=== PATIENT | female | born 1960 | race Two or more races ===

== ENCOUNTER 2024-10-07 18:00 | Inpatient (IN) | payer OTHER ==
[~2024-10-07] VITALS: Ht 152.4 cm; Wt 71.7 kg
[2024-10-07 19:36] LABS: BASOPHILS # (AUTO) 0.1 K/uL (0.0-0.2); BASOPHILS % (AUTO) 0.2 % (0.0-2.0); HEMATOCRIT 21 % (33-45); LYMPHOCYTES # (AUTO) 0.7 K/uL (0.8-4.8); LYMPHOCYTES % (AUTO) 1.5 % (20.0-44.0); MEAN CORPUSCULAR HEMOGLOBIN 28 PG (26.0-33.0); MEAN CORPUSCULAR HGB CONC 31 g/dl (31.0-36.0); MEAN CORPUSCULAR VOLUME 91 fL (82-100); MONOCYTES # (AUTO) 2.8 K/uL (0.1-1.30); MONOCYTES % (AUTO) 6.1 % (2.0-12.0); NEUTROPHILS % (AUTO) 92.2 % (43.0-81.0); PLATELET COUNT (AUTO) 178 K/uL (150-450); RED BLOOD CELL COUNT(AUTO) 2.32 MIL/uL (4.0-5.2); RED CELL DISTRIBUTION WIDTH 23.9 % (11.5-15.0)
[2024-10-07 19:37] LABS: WHITE BLOOD COUNT (AUTO) 45.5 K/uL (4.3-11.0)
[2024-10-07 19:38] LABS: HEMOGLOBIN 6.5 g/dL (11.5-14.8)
[2024-10-07] MEDS: IV NS 0.9% 1,000 ML BAG IV ONE ×2 (19:42→22:00)
[2024-10-07 19:52] LABS: INR 1.1 (0.91-1.10); PARTIAL THROMBOPLASTIN TIME 30.6 SEC (24.3-34.3); PROTHROMBIN TIME 11.6 SECS (9.2-11.1)
[2024-10-07 20:04] LABS: ALANINE AMINOTRANSFERASE 19 U/L (12-78); ALBUMIN 1.7 g/dL (3.4-5.0); ALCOHOL, BLOOD < 3 mg/dL (0-10); ALKALINE PHOSPHATASE 353 U/L (46-116); ASPARTATE AMINOTRANSFERASE 15 U/L (15-37); BILIRUBIN,DIRECT 0.1 mg/dL (0.0-0.2); BILIRUBIN,TOTAL 0.3 mg/dL (0.2-1.0); CALCIUM, SERUM 9.2 mg/dL (8.5-10.1); CARBON DIOXIDE 22 mmol/L (21-32); CHLORIDE 104 mmol/L (98-107); GLUCOSE 138 mg/dL (74-106); POTASSIUM 3.9 mmol/L (3.5-5.1); SODIUM SERUM 139 mmol/L (136-145); TOTAL PROTEIN, SERUM 5.2 g/dL (6.4-8.2); UREA NITROGEN, BLOOD 14 mg/dL (7-18)
[2024-10-07 21:26] LABS: ANISOCYTOSIS 1+; LYMPHOCYTES % (MANUAL) 1 % (16-48); MONOCYTES % (MANUAL) 6 % (0-11.0); NEUTROPHILS % (MANUAL) 93 (42-76); PLATELET ESTIMATE ADEQUATE
[2024-10-07] MEDS: ALBUMIN 25% 12.5 GM/50 ML BOTTLE IV ONE (22:30)
[2024-10-07 23:07] LABS: LACTIC ACID 2.8 mmol/L (0.4-2.0)
[2024-10-08] MEDS ORDERED: ALBUMIN 25% 100 ML IV ONE (00:37)
[2024-10-08] MEDS ORDERED: ACETAMINOPHEN ES 500 MG TABLET ONE (00:37)
[2024-10-08] MEDS: ACETAMINOPHEN 325 MG TABLET PO ONE (00:39)
[2024-10-08 01:35] LABS: APPEARANCE,URINE CLOUDY (CLEAR); BILIRUBIN,URINE NEGATIVE (NEGATIVE); BLOOD, URINE 3+ Ery/uL (NEGATIVE); COLOR,URINE YELLOW (YELLOW); KETONES,URINE NEGATIVE (NEGATIVE); LEUKOCYTE ESTERASE ,URINE 2+ (NEGATIVE); NITRITE, URINE NEGATIVE (NEGATIVE); PROTEIN,URINE 2+ mg/dl (NEGATIVE); UGLUCOSE NEGATIVE (NEGATIVE); UROBILINOGEN,URINE 0.2 EU/dL (0.2)
[2024-10-08 01:42] LABS: AMPHETAMINE, URINE NEGATIVE (NEGATIVE); BARBITURATE, URINE NEGATIVE (NEGATIVE); BENZODIAZEPINE, URINE NEGATIVE (NEGATIVE); CANNABINOID, URINE NEGATIVE (NEGATIVE); COCCAINE, URINE NEGATIVE (NEGATIVE); OPIATE, URINE NEGATIVE (NEGATIVE); PHENCYCLIDINE SCREEN,URINE NEGATIVE (NEGATIVE)
[2024-10-08 01:45] LABS: BACTERIA,URINE Many /HPF (None Seen)
[2024-10-08 01:47] LABS: ADD URINE CULTURE YES; WBC,URINE 81-100 /HPF (0-3)
[2024-10-08 01:49] LABS: SQUAMOUS EPITHELIAL CELL,UR Moderate /HPF (None Seen)
[2024-10-08 01:51] LABS: YEAST,URINE Moderate /HPF (None Seen)
[2024-10-08] MEDS ORDERED: MAGNESIUM HYDROXIDE 30 ML UDC PO PRN (02:00)
[2024-10-08] MEDS ORDERED: MAG HYDROX/AL HYDROX/SIMETH 30 ML UDC PO PRN (02:00)
[2024-10-08] MEDS ORDERED: Z GUARD REMEDY 4 OZ OINT TP PRN (02:00)
[2024-10-08 02:05] LABS: URINE AMORPHOUS URATE Many /HPF (None Seen)
[2024-10-08] MEDS ORDERED: CEFTRIAXONE 1GM BAG (ER ONLY) 50 ML IV ONE (02:36)
[2024-10-08] MEDS: CEFTRIAXONE 1GM BAG (ER ONLY) 1 GM/50 ML PIGGYBACK IV ONE (02:36)
[2024-10-08 03:10] VITALS: BP 102/87; TEMP 98.2; O2SAT 98
[2024-10-08] MEDS: IV NS 0.9% 1,000 ML IV PRN (03:16)
[2024-10-08 04:00] VITALS: BP 102/87; TEMP 98.2; O2SAT 98
[2024-10-08 07:37] LABS: BASOPHILS % (AUTO) 0.1 % (0.0-2.0); EOSINOPHILS # (AUTO) 0.3 K/uL (0.0-0.7); EOSINOPHILS % (AUTO) 0.6 % (0.0-6.0); HEMATOCRIT 25 % (33-45); LYMPHOCYTES % (AUTO) 2.1 % (20.0-44.0); MEAN CORPUSCULAR HEMOGLOBIN 29 PG (26.0-33.0); MEAN CORPUSCULAR HGB CONC 32 g/dl (31.0-36.0); MEAN CORPUSCULAR VOLUME 92 fL (82-100); MONOCYTES % (AUTO) 6.4 % (2.0-12.0); NEUTROPHILS # (AUTO) 42.4 K/uL (1.8-8.9); NEUTROPHILS % (AUTO) 90.8 % (43.0-81.0); PLATELET COUNT (AUTO) 155 K/uL (150-450); RED BLOOD CELL COUNT(AUTO) 2.76 MIL/uL (4.0-5.2); RED CELL DISTRIBUTION WIDTH 21.9 % (11.5-15.0)
[2024-10-08 08:25] LABS: WHITE BLOOD COUNT (AUTO) 46.7 K/uL (4.3-11.0)
[2024-10-08] MEDS: PIPERACILLIN /TAZOBACTAM 3.375 G in IV D5W 50 ML IV SCH (08:33)
[2024-10-08] MEDS: PANTOPRAZOLE 40 MG VIAL IV SCH (08:42)
[2024-10-08 12:49] LABS: LYMPHOCYTES % (MANUAL) 2 % (16-48); MONOCYTES % (MANUAL) 7 % (0-11.0); NEUTROPHILS % (MANUAL) 91 (42-76); PLATELET ESTIMATE ADEQUATE
[2024-10-08 12:50] LABS: ANISOCYTOSIS 1+
[2024-10-08] MEDS ORDERED: ENOX80DI9 SQ (13:09)
[2024-10-08] MEDS ORDERED: BUSP10TA35 PO (13:09)
[2024-10-08] MEDS ORDERED: LACT10SO3 PO (13:09)
[2024-10-08] MEDS ORDERED: GLIP5TAB13 PO (13:09)
[2024-10-08] MEDS ORDERED: BUPR100T6 PO (13:09)
[2024-10-08] MEDS ORDERED: ONDA8TAB13 PO (13:09)
[2024-10-08] MEDS ORDERED: LINA145C PO (13:09)
[2024-10-08] MEDS ORDERED: HYDR4TAB57 PO (13:09)
[2024-10-08] MEDS ORDERED: EMPA25TA PO (13:09)
[2024-10-08] MEDS ORDERED: ATOR20TA PO (13:09)
[2024-10-08] MEDS: HYDROMORPHONE 1 MG/1 ML DISP.SYRIN IV PRN (14:46)
[2024-10-08] MEDS ORDERED: busPIRone HCL 10 MG TABLET PO SCH (18:00)
[2024-10-08] MEDS ORDERED: Medication Not On Formulary EA (Linaclotide (Linzess) 145 MCG) PO SCH (18:00)
[2024-10-08] MEDS: buPROPion SR 100 MG TABLET.ER PO SCH (18:48)
[2024-10-08] MEDS: EMPAGLIFLOZIN 25 MG TABLET PO SCH (18:48)
[2024-10-08] MEDS: glipiZIDE 5 MG TABLET PO SCH (18:48)
[2024-10-08 20:00] VITALS: BP 105/61; TEMP 99; O2SAT 93
[2024-10-08] MEDS: ATORVASTATIN 10 MG TABLET PO SCH (21:07)
[2024-10-08] MEDS: ONDANSETRON HCL/PF 4 MG/2 ML VIAL IVP PRN (21:07)
[2024-10-08] MEDS: ACETAMINOPHEN 325 MG TABLET PO PRN (21:14)
[2024-10-09] VITALS (8 sets, daily range): BP systolic 99–123; BP diastolic 60–79; TEMP 97.3–98.8; O2SAT 95–98
[2024-10-09] MEDS: PANTOPRAZOLE 40 MG TABLET.DR PO SCH (09:19)
[2024-10-09] MEDS: LACTULOSE 10 G/15 ML UDC (PYXIS) PO SCH (09:19)
[2024-10-09] MEDS: busPIRone 5 MG TABLET PO SCH (09:20)
[2024-10-09] MEDS: PIPERACILLIN /TAZOBACTAM 3.375 G in IV D5W 50 ML IV ONE (09:21)
[2024-10-09 12:13] LABS: ALBUMIN 1.8 g/dL (3.4-5.0); BILIRUBIN,TOTAL 0.3 mg/dL (0.2-1.0); MAGNESIUM 1.6 mg/dL (1.8-2.4); PHOSPHORUS 3.7 mg/dL (2.5-4.9); POTASSIUM 3.6 mmol/L (3.5-5.1); TOTAL PROTEIN, SERUM 5.3 g/dL (6.4-8.2)
[2024-10-09 12:52] LABS: EOSINOPHILS # (AUTO) 0.2 K/uL (0.0-0.7); EOSINOPHILS % (AUTO) 0.5 % (0.0-6.0); HEMATOCRIT 30 % (33-45); HEMOGLOBIN 9.3 g/dL (11.5-14.8); LYMPHOCYTES # (AUTO) 0.8 K/uL (0.8-4.8); LYMPHOCYTES % (AUTO) 2.6 % (20.0-44.0); MEAN CORPUSCULAR HEMOGLOBIN 29 PG (26.0-33.0); MEAN CORPUSCULAR HGB CONC 31 g/dl (31.0-36.0); MEAN CORPUSCULAR VOLUME 94 fL (82-100); MONOCYTES # (AUTO) 3.1 K/uL (0.1-1.30); MONOCYTES % (AUTO) 10.2 % (2.0-12.0); NEUTROPHILS # (AUTO) 26.4 K/uL (1.8-8.9); NEUTROPHILS % (AUTO) 86.7 % (43.0-81.0); PLATELET COUNT (AUTO) 184 K/uL (150-450); RED BLOOD CELL COUNT(AUTO) 3.16 MIL/uL (4.0-5.2); RED CELL DISTRIBUTION WIDTH 22.9 % (11.5-15.0)
[2024-10-09 13:03] LABS: WHITE BLOOD COUNT (AUTO) 30.4 K/uL (4.3-11.0)
[2024-10-09 13:25] LABS: ANISOCYTOSIS 2+; LYMPHOCYTES % (MANUAL) 5 % (16-48); MONOCYTES % (MANUAL) 11 % (0-11.0); NEUTROPHILS % (MANUAL) 84 (42-76); PLATELET ESTIMATE ADEQUATE
[2024-10-09] MEDS ORDERED: ZOLPIDEM TARTRATE 5 MG TABLET PO PRN (21:30)
[2024-10-10 00:16] VITALS: BP 114/68; TEMP 98.8; O2SAT 96
[2024-10-10 08:00] VITALS: BP 105/79; TEMP 97.7; O2SAT 96
[2024-10-10 12:00] VITALS: BP 126/60; TEMP 98.6; O2SAT 97
[2024-10-10 15:13] LABS: HIV-1 p24 ANTIGEN NON REACTIVE (NONREACTIVE); HIV-1/2 ANTIBODY NON REACTIVE (NONREACTIVE)
[2024-10-10 16:00] VITALS: BP 111/74; TEMP 97.7; O2SAT 98
[2024-10-11 03:06] LABS: RAPID PLASMA REAGIN QUAL. Non Reactive (Non Reactive)
== END 2024-10-10 21:00 | disposition short-term general hospital (02) | DRG 871 ==
LOC: ER 18:00 → TELE 10-08 02:18
PROVIDERS: ADMIT Nurse Practitioner Acute Care; ATTEND Nurse Practitioner Acute Care
PROC: 30233N1 Transfusion of Nonautologous Red Blood Cells into Peripheral Vein, Percutaneous Approach (ICD-10-PCS; principal; 2024-10-08)
DX: A41.9 Sepsis, unspecified organism (principal); G92.8 Other toxic encephalopathy; N12 Tubulo-interstitial nephritis, not specified as acute or chronic; C79.82 Secondary malignant neoplasm of genital organs; N13.9 Obstructive and reflux uropathy, unspecified; Z85.3 Personal history of malignant neoplasm of breast; D64.9 Anemia, unspecified; Z88.8 Allergy status to other drugs, medicaments and biological substances; E11.9 Type 2 diabetes mellitus without complications; R65.20 Severe sepsis without septic shock; Z85.42 Personal history of malignant neoplasm of other parts of uterus; Z90.10 Acquired absence of unspecified breast and nipple; Z92.21 Personal history of antineoplastic chemotherapy; D63.8 Anemia in other chronic diseases classified elsewhere; Z93.6 Other artificial openings of urinary tract status; Z79.84 Long term (current) use of oral hypoglycemic drugs; Z79.899 Other long term (current) drug therapy; Z79.01 Long term (current) use of anticoagulants
CPT/HCPCS: 36415; 70450-TC; 71045-TC; 80048-TC; 80053-TC; 80076-TC; 81001; 82962-TC; 83605-TC; 83735-TC; 84100-TC; 84443-TC; 85025-TC; 85730-TC; 86592; 86593; 86803; 86850-TC; 87040-TC; 87086-TC; 87806; A4223; G0378; G0480; J0696; J1171; J2405; J2470; J2543; J7030; J7040; J7060; P9016; P9047

== ENCOUNTER 2024-10-27 12:41 | Emergency (ER) | payer OTHER, MEDICAID ==
[~2024-10-27] VITALS: Ht 157.5 cm; Wt 95.7 kg
[~2024-10-27 12:41] MED LIST: ATOR20TA PO; BUPR100T6 PO; BUSP10TA35 PO; EMPA25TA PO; ENOX80DI9 SQ; GLIP5TAB13 PO; HYDR4TAB57 PO; LACT10SO3 PO; LINA145C PO; ONDA8TAB13 PO
[2024-10-27 13:13] VITALS: TEMP 97.5
[2024-10-27] MEDS ORDERED: MORPHINE SULFATE INJ 4 MG/ML DISP.SYRIN ONE (13:40)
[2024-10-27] MEDS: MORPHINE SULFATE INJ 2 MG/ML DISP.SYRIN IV ONE (13:50)
[2024-10-27 15:17] LABS: BASOPHILS % (AUTO) 0.2 % (0.0-2.0); EOSINOPHILS # (AUTO) 0.1 K/uL (0.0-0.7); EOSINOPHILS % (AUTO) 0.6 % (0.0-6.0); HEMATOCRIT 25 % (33-45); LYMPHOCYTES # (AUTO) 0.3 K/uL (0.8-4.8); LYMPHOCYTES % (AUTO) 2.5 % (20.0-44.0); MEAN CORPUSCULAR HEMOGLOBIN 31 PG (26.0-33.0); MEAN CORPUSCULAR HGB CONC 31 g/dl (31.0-36.0); MEAN CORPUSCULAR VOLUME 98 fL (82-100); MONOCYTES # (AUTO) 0.8 K/uL (0.1-1.30); MONOCYTES % (AUTO) 6.5 % (2.0-12.0); NEUTROPHILS # (AUTO) 11.5 K/uL (1.8-8.9); NEUTROPHILS % (AUTO) 90.2 % (43.0-81.0); PLATELET COUNT (AUTO) 228 K/uL (150-450); RED BLOOD CELL COUNT(AUTO) 2.59 MIL/uL (4.0-5.2); RED CELL DISTRIBUTION WIDTH 27.3 % (11.5-15.0); WHITE BLOOD COUNT (AUTO) 12.8 K/uL (4.3-11.0)
[2024-10-27] MEDS ORDERED: HYDROMORPHONE 1 MG/1 ML DISP.SYRIN ONE (15:25)
[2024-10-27 15:27] LABS: CALCIUM, SERUM 9.5 mg/dL (8.5-10.1); POTASSIUM 4.8 mmol/L (3.5-5.1)
[2024-10-27] MEDS: HYDROMORPHONE 1 MG/1 ML DISP.SYRIN IV ONE (15:30)
[2024-10-27 15:38] LABS: ALBUMIN 1.9 g/dL (3.4-5.0); BILIRUBIN,DIRECT 0.1 mg/dL (0.0-0.2); BILIRUBIN,TOTAL 0.5 mg/dL (0.2-1.0); TOTAL PROTEIN, SERUM 5.8 g/dL (6.4-8.2)
[2024-10-27 20:17] VITALS: BP 104/66; O2SAT 95
== END 2024-10-27 20:43 | disposition short-term general hospital (02) ==
LOC: ER 12:48
DX: D64.9 Anemia, unspecified (principal); E11.9 Type 2 diabetes mellitus without complications; Z79.84 Long term (current) use of oral hypoglycemic drugs; Z79.899 Other long term (current) drug therapy; Z88.5 Allergy status to narcotic agent
CPT/HCPCS: 99285; 96374; 73564; 85025; 80048; 83690; 80076; 36415; J1171; J2270

== ENCOUNTER 2024-11-06 17:39 | Inpatient (IN) | payer OTHER, MEDICAID ==
[~2024-11-06] VITALS: Ht 170.2 cm; Wt 90.7 kg
[2024-11-06] MEDS: CEFEPIME 1 GM in IV D5W 50 ML IV ONE (18:10)
[2024-11-06 18:23] LABS: BASOPHILS % (AUTO) 0.2 % (0.0-2.0); EOSINOPHILS % (AUTO) 0.1 % (0.0-6.0); HEMATOCRIT 34 % (33-45); LYMPHOCYTES # (AUTO) 0.3 K/uL (0.8-4.8); LYMPHOCYTES % (AUTO) 2.4 % (20.0-44.0); MEAN CORPUSCULAR HEMOGLOBIN 31 PG (26.0-33.0); MEAN CORPUSCULAR HGB CONC 29 g/dl (31.0-36.0); MEAN CORPUSCULAR VOLUME 105 fL (82-100); MONOCYTES # (AUTO) 0.6 K/uL (0.1-1.30); MONOCYTES % (AUTO) 4.6 % (2.0-12.0); NEUTROPHILS # (AUTO) 12.4 K/uL (1.8-8.9); NEUTROPHILS % (AUTO) 92.7 % (43.0-81.0); PLATELET COUNT (AUTO) 189 K/uL (150-450); RED BLOOD CELL COUNT(AUTO) 3.27 MIL/uL (4.0-5.2); RED CELL DISTRIBUTION WIDTH 27.7 % (11.5-15.0); WHITE BLOOD COUNT (AUTO) 13.3 K/uL (4.3-11.0)
[2024-11-06 18:38] LABS: ALBUMIN 2.1 g/dL (3.4-5.0); BILIRUBIN,TOTAL 0.3 mg/dL (0.2-1.0); CALCIUM, SERUM 10.3 mg/dL (8.5-10.1); CARBON DIOXIDE 21 mmol/L (21-32); CHLORIDE 106 mmol/L (98-107); CREATININE 1.7 mg/dL (0.6-1.3); GLUCOSE 133 mg/dL (74-106); POTASSIUM 5.3 mmol/L (3.5-5.1); SODIUM SERUM 140 mmol/L (136-145); TOTAL PROTEIN, SERUM 5.6 g/dL (6.4-8.2); UREA NITROGEN, BLOOD 69 mg/dL (7-18)
[2024-11-06 18:43] LABS: INR 0.99 (0.91-1.10); PARTIAL THROMBOPLASTIN TIME 26.5 SEC (24.3-34.3); PROTHROMBIN TIME 10.5 SECS (9.2-11.1)
[2024-11-06 18:45] LABS: LACTIC ACID 2.1 mmol/L (0.4-2.0)
[2024-11-06] MEDS: VANCOMYCIN 1 GM in IV D5W 250 ML IV ONE (18:50)
[2024-11-06 18:52] LABS: ALANINE AMINOTRANSFERASE 10 U/L (12-78); ALKALINE PHOSPHATASE 127 U/L (46-116); BILIRUBIN,DIRECT 0.1 mg/dL (0.0-0.2)
[2024-11-06] MEDS: IV NS 0.9% 1,000 ML BAG IV ONE (19:05)
[2024-11-06] MEDS ORDERED: IV NS 0.9% 250 ML IV ONE (19:39)
[2024-11-06] MEDS ORDERED: IOHEXOL-350 100 ML VIAL IV ONE (19:39)
[2024-11-06 19:53] LABS: ASPARTATE AMINOTRANSFERASE 21 U/L (15-37)
[2024-11-06] MEDS: FUROSEMIDE 40 MG/4 ML VIAL IV ONE (21:19)
[2024-11-06 21:54] LABS: ABG BASE EXCESS -6.2 mmol/L (-2.0-3.0); ABG OXYGEN SATURATION 92.1 % (94.0-98.0); ABG PCO2 65.9 mmHg (32.0-45.0); ABG PH 7.159 (7.350-7.450); ABG PO2 79.5 mmHg (83.0-108.0); ABG TOTAL HEMOGLOBIN 10.3 G/dL (12.0-16.0); COHb 0.3 % (0.5-1.5); MetHb 0.4 % (0.0-1.5); O2Hb 91.5 % (94.0-97.0); SITE, ABG RIGHT RADIAL
[2024-11-06] MEDS ORDERED: LEVALBUTEROL HCL NEB 1.25 MG/0.5 ML VIAL.NEB NEB PRN (22:00)
[2024-11-06] MEDS: ENOXAPARIN SODIUM 40 MG/0.4 ML DISP.SYRIN SQ SCH (22:00)
[2024-11-06] MEDS ORDERED: ONDANSETRON HCL/PF 4 MG/2 ML VIAL IVP PRN (22:00)
[2024-11-06] MEDS ORDERED: KETOROLAC TROMETHAMINE 15 MG/ML VIAL ONE (22:14)
[2024-11-06] MEDS: KETOROLAC TROMETHAMINE 15 MG/ML VIAL IV ONE (22:16)
[2024-11-06] MEDS ORDERED: ENOXAPARIN SODIUM 40 MG/0.4 ML DISP.SYRIN SQ ONE (22:29)
[2024-11-06] MEDS ORDERED: CEFTRIAXONE 1GM BAG (ER ONLY) 50 ML IV ONE (22:29)
[2024-11-06] MEDS ORDERED: MORPHINE SULFATE INJ 10 MG/ML DISP.SYRIN IV PRN (22:30)
[2024-11-06] MEDS: CEFTRIAXONE 1 G in IV D5W 50 ML IV SCH (22:35)
[2024-11-06 23:45] VITALS: BP 130/71; O2SAT 98
[2024-11-06 23:57] VITALS: BP 130/71; TEMP 97.8; O2SAT 98
[2024-11-07] VITALS (24 sets, daily range): BP systolic 95–142; BP diastolic 51–84; TEMP 97–97.8; O2SAT 98–100
[2024-11-07 04:52] LABS: BASOPHILS # (AUTO) 0.1 K/uL (0.0-0.2); BASOPHILS % (AUTO) 0.5 % (0.0-2.0); HEMATOCRIT 30 % (33-45); HEMOGLOBIN 9.4 g/dL (11.5-14.8); LYMPHOCYTES # (AUTO) 0.3 K/uL (0.8-4.8); LYMPHOCYTES % (AUTO) 1.7 % (20.0-44.0); MEAN CORPUSCULAR HEMOGLOBIN 31 PG (26.0-33.0); MEAN CORPUSCULAR HGB CONC 31 g/dl (31.0-36.0); MEAN CORPUSCULAR VOLUME 99 fL (82-100); MONOCYTES # (AUTO) 0.7 K/uL (0.1-1.30); MONOCYTES % (AUTO) 3.9 % (2.0-12.0); NEUTROPHILS # (AUTO) 16.2 K/uL (1.8-8.9); NEUTROPHILS % (AUTO) 93.9 % (43.0-81.0); PLATELET COUNT (AUTO) 261 K/uL (150-450); RED BLOOD CELL COUNT(AUTO) 3.06 MIL/uL (4.0-5.2); RED CELL DISTRIBUTION WIDTH 26.4 % (11.5-15.0); WHITE BLOOD COUNT (AUTO) 17.3 K/uL (4.3-11.0)
[2024-11-07 05:15] LABS: ALANINE AMINOTRANSFERASE 13 U/L (12-78); ALBUMIN 1.9 g/dL (3.4-5.0); ALKALINE PHOSPHATASE 118 U/L (46-116); ASPARTATE AMINOTRANSFERASE 19 U/L (15-37); BILIRUBIN,DIRECT 0.2 mg/dL (0.0-0.2); BILIRUBIN,TOTAL 0.3 mg/dL (0.2-1.0); CALCIUM, SERUM 9.9 mg/dL (8.5-10.1); CARBON DIOXIDE 26 mmol/L (21-32); CHLORIDE 106 mmol/L (98-107); CREATININE 1.7 mg/dL (0.6-1.3); GLUCOSE 122 mg/dL (74-106); MAGNESIUM 2.3 mg/dL (1.8-2.4); POTASSIUM 5.5 mmol/L (3.5-5.1); SODIUM SERUM 141 mmol/L (136-145); TOTAL PROTEIN, SERUM 5.3 g/dL (6.4-8.2); UREA NITROGEN, BLOOD 69 mg/dL (7-18)
[2024-11-07 06:13] LABS: ABG BASE EXCESS -7.1 mmol/L (-2.0-3.0); ABG OXYGEN SATURATION 98.7 % (94.0-98.0); ABG PCO2 40.7 mmHg (32.0-45.0); ABG PH 7.287 (7.350-7.450); ABG PO2 141.7 mmHg (83.0-108.0); ABG TOTAL HEMOGLOBIN 10.2 G/dL (12.0-16.0); COHb 0.1 % (0.5-1.5); MetHb 0.2 % (0.0-1.5); O2Hb 98.4 % (94.0-97.0); SITE, ABG RIGHT RADIAL
[2024-11-07 06:19] LABS: NT-PRO BNP < 5 pg/mL (0-125)
[2024-11-07] MEDS: FUROSEMIDE 20 MG/2 ML VIAL IV SCH (08:46)
[2024-11-07] MEDS: VANCOMYCIN 1 GM in IV D5W 250ml IV ONE (08:46)
[2024-11-07] MEDS: PANTOPRAZOLE 40 MG VIAL IV SCH (08:46)
[2024-11-07] MEDS ORDERED: SODIUM POLYSTYRENE SULFONATE 15 G/60 ML BOTTLE PO ONE (09:00)
[2024-11-07] MEDS: IPRATROPIUM NEB FS 0.5 MG/2.5 ML AMPUL.NEB NEB SCH (10:00)
[2024-11-07] MEDS: ALBUTEROL HALF STRENGTH 1.25 MG/3 ML VIAL.NEB NEB SCH (10:00)
[2024-11-07] MEDS: BUMETANIDE INJ 6 MG in IV D5W 36 ML IV ONE (11:13)
[2024-11-07] MEDS: ALBUMIN 25% 25 GM in PREMIX 1 EA IV SCH (11:14)
[2024-11-07] MEDS: SODIUM POLYSTYRENE SULFONATE 15 G/60 ML BOTTLE RC ONE (13:19)
[2024-11-07] MEDS: Z GUARD REMEDY 4 OZ OINT TP PRN (13:20)
[2024-11-07] MEDS: FUROSEMIDE 40 MG/4 ML VIAL IV ONE (13:47)
[2024-11-07 22:17] LABS: APPEARANCE,URINE CLOUDY (CLEAR); BILIRUBIN,URINE NEGATIVE (NEGATIVE); BLOOD, URINE 3+ Ery/uL (NEGATIVE); COLOR,URINE RED (YELLOW); KETONES,URINE 1+ mg/dL (NEGATIVE); LEUKOCYTE ESTERASE ,URINE 2+ (NEGATIVE); NITRITE, URINE POSITIVE (NEGATIVE); PH,URINE 6.5 (5.0-8.0); PROTEIN,URINE 3+ mg/dl (NEGATIVE); UGLUCOSE NEGATIVE (NEGATIVE)
[2024-11-07 23:03] LABS: RBC,URINE TOO NUMEROUS TO COUN /HPF (0-2)
[2024-11-07 23:06] LABS: ADD URINE CULTURE YES; BACTERIA,URINE Many /HPF (None Seen); SQUAMOUS EPITHELIAL CELL,UR Rare /HPF (None Seen)
[2024-11-07 23:37] LABS: LYMPHOCYTES # (AUTO) 0.2 K/uL (0.8-4.8); MONOCYTES # (AUTO) 0.5 K/uL (0.1-1.30)
[2024-11-07 23:45] LABS: BASOPHILS % (AUTO) 0.2 % (0.0-2.0); EOSINOPHILS % (AUTO) 0.2 % (0.0-6.0); LYMPHOCYTES % (AUTO) 1.9 % (20.0-44.0); MEAN CORPUSCULAR HEMOGLOBIN 31 PG (26.0-33.0); MEAN CORPUSCULAR HGB CONC 31 g/dl (31.0-36.0); MEAN CORPUSCULAR VOLUME 98 fL (82-100); MONOCYTES % (AUTO) 4.8 % (2.0-12.0); NEUTROPHILS # (AUTO) 10.6 K/uL (1.8-8.9); NEUTROPHILS % (AUTO) 92.9 % (43.0-81.0); PLATELET COUNT (AUTO) 194 K/uL (150-450); RED CELL DISTRIBUTION WIDTH 26.2 % (11.5-15.0); WHITE BLOOD COUNT (AUTO) 11.4 K/uL (4.3-11.0)
[2024-11-07 23:47] LABS: RED BLOOD CELL COUNT(AUTO) 2.37 MIL/uL (4.0-5.2)
[2024-11-07 23:48] LABS: HEMATOCRIT 23 % (33-45); HEMOGLOBIN 7.2 g/dL (11.5-14.8)
[2024-11-07 23:59] LABS: ALBUMIN 3.4 g/dL (3.4-5.0); BILIRUBIN,TOTAL 0.5 mg/dL (0.2-1.0); CALCIUM, SERUM 10.2 mg/dL (8.5-10.1); MAGNESIUM 2.3 mg/dL (1.8-2.4); PHOSPHORUS 6.5 mg/dL (2.5-4.9); TOTAL PROTEIN, SERUM 5.9 g/dL (6.4-8.2)
[2024-11-08] VITALS (17 sets, daily range): BP systolic 93–142; BP diastolic 48–82; TEMP 97.2–98.3; O2SAT 92–100
[2024-11-08 04:32] LABS: BASOPHILS % (AUTO) 0.3 % (0.0-2.0); EOSINOPHILS % (AUTO) 0.2 % (0.0-6.0); HEMATOCRIT 23 % (33-45); HEMOGLOBIN 7.2 g/dL (11.5-14.8); LYMPHOCYTES # (AUTO) 0.2 K/uL (0.8-4.8); LYMPHOCYTES % (AUTO) 1.9 % (20.0-44.0); MEAN CORPUSCULAR HEMOGLOBIN 31 PG (26.0-33.0); MEAN CORPUSCULAR HGB CONC 32 g/dl (31.0-36.0); MEAN CORPUSCULAR VOLUME 98 fL (82-100); MONOCYTES # (AUTO) 0.5 K/uL (0.1-1.30); MONOCYTES % (AUTO) 4.5 % (2.0-12.0); NEUTROPHILS # (AUTO) 10.3 K/uL (1.8-8.9); NEUTROPHILS % (AUTO) 93.1 % (43.0-81.0); PLATELET COUNT (AUTO) 188 K/uL (150-450); RED BLOOD CELL COUNT(AUTO) 2.32 MIL/uL (4.0-5.2); RED CELL DISTRIBUTION WIDTH 26.7 % (11.5-15.0); WHITE BLOOD COUNT (AUTO) 11.1 K/uL (4.3-11.0)
[2024-11-08 05:04] LABS: ALBUMIN 3.2 g/dL (3.4-5.0); BILIRUBIN,TOTAL 0.5 mg/dL (0.2-1.0); CALCIUM, SERUM 10.3 mg/dL (8.5-10.1); MAGNESIUM 2.5 mg/dL (1.8-2.4); PHOSPHORUS 6.3 mg/dL (2.5-4.9); POTASSIUM 4.9 mmol/L (3.5-5.1); TOTAL PROTEIN, SERUM 5.8 g/dL (6.4-8.2)
[2024-11-08] MEDS: VANCOMYCIN HCL 1.25 GM in IV D5W 250 ML IV SCH (07:55)
[2024-11-08 08:23] LABS: ABG BASE EXCESS -6.4 mmol/L (-2.0-3.0); ABG OXYGEN SATURATION 93.5 % (94.0-98.0); ABG PCO2 34.1 mmHg (32.0-45.0); ABG PH 7.352 (7.350-7.450); ABG PO2 76.6 mmHg (83.0-108.0); ABG TOTAL HEMOGLOBIN 7.9 G/dL (12.0-16.0); COHb 0.7 % (0.5-1.5); MetHb 0.3 % (0.0-1.5); O2Hb 92.6 % (94.0-97.0); SITE, ABG RIGHT RADIAL
[2024-11-08] MEDS ORDERED: HYDROCODONE/APAP 5/325MG TABLET PO PRN (08:30)
[2024-11-09 05:12] LABS: PTH, INTACT 13 pg/mL (15-65)
[2024-11-09] MEDS ORDERED: PANTOPRAZOLE 40 MG/PACK PACK PO SCH (09:00)
[2024-11-09 10:07] LABS: *SPE A/G RATIO 1.3 (0.7-1.7); *SPE ALPHA-1-GLOBULIN 0.3 g/dL (0.0-0.4); *SPE ALPHA-2-GLOBULIN 0.7 g/dL (0.4-1.0); *SPE BETA GLOBULIN 0.8 g/dL (0.7-1.3); *SPE GLOBULIN, TOTAL 2.4 g/dL (2.2-3.9); *SPE M-SPIKE Not Observed g/dL (Not Observed); *SPE PROTEIN TOTAL 5.4 g/dL (6.0-8.5); *SPEGAMMA GLOBULIN 0.6 g/dL (0.4-1.8)
[2024-11-09] MEDS ORDERED: VANCOMYCIN HCL 1.25 GM in IV D5W 250 ML IV SCH (20:00)
== END 2024-11-08 15:31 | disposition short-term general hospital (02) | DRG 597 ==
LOC: ER 17:53 → TELE-TD 22:39 → ICU 22:52
PROVIDERS: ADMIT Nurse Practitioner Family; ATTEND Internal Medicine
PROC: 5A09457 Assistance with Respiratory Ventilation, 24-96 Consecutive Hours, Continuous Positive Airway Pressure (ICD-10-PCS; principal; 2024-11-06)
DX: C50.919 Malignant neoplasm of unspecified site of unspecified female breast (principal); J96.01 Acute respiratory failure with hypoxia; N17.0 Acute kidney failure with tubular necrosis; J96.02 Acute respiratory failure with hypercapnia; R18.8 Other ascites; N13.30 Unspecified hydronephrosis; C79.9 Secondary malignant neoplasm of unspecified site; E87.20 Acidosis, unspecified; E44.1 Mild protein-calorie malnutrition; D68.59 Other primary thrombophilia; J91.0 Malignant pleural effusion; Z93.6 Other artificial openings of urinary tract status; I12.9 Hypertensive chronic kidney disease with stage 1 through stage 4 chronic kidney disease, or unspecified chronic kidney disease; N18.9 Chronic kidney disease, unspecified; Z85.028 Personal history of other malignant neoplasm of stomach; Z85.3 Personal history of malignant neoplasm of breast; Z90.11 Acquired absence of right breast and nipple; Z79.84 Long term (current) use of oral hypoglycemic drugs; M89.8X9 Other specified disorders of bone, unspecified site; E88.09 Other disorders of plasma-protein metabolism, not elsewhere classified; E87.70 Fluid overload, unspecified; E87.5 Hyperkalemia; E78.5 Hyperlipidemia, unspecified; E11.22 Type 2 diabetes mellitus with diabetic chronic kidney disease; D64.9 Anemia, unspecified; Z88.8 Allergy status to other drugs, medicaments and biological substances; Z79.01 Long term (current) use of anticoagulants; Z79.899 Other long term (current) drug therapy; L81.9 Disorder of pigmentation, unspecified; N13.9 Obstructive and reflux uropathy, unspecified
CPT/HCPCS: 36415; 36600; 71045-TC; 76700-TC; 80048-TC; 80053-TC; 80076-TC; 81001; 82550-TC; 82803-TC; 83605-TC; 83735-TC; 83880; 83970; 84100-TC; 84155; 84165; 84484-TC; 85025-TC; 85378-TC; 85730-TC; 86850-TC; 87040-TC; 87086-TC; 87186-TC; 93307-TC; 93926-TC; 93970-TC; 94799-TC; A4216; A4223; G0378; J0692; J0696; J1650; J1885; J1940; J2470; J3370; J3490; J7050; J7060; P9047; Q9967